=== PATIENT | female | born 2000 | race Caucasian/White ===

== ENCOUNTER 2020-09-29 15:56 | Inpatient (IN) ==
[2020-09-29] MEDS ORDERED: OXYTOCIN/0.9 % SODIUM CHLORIDE 30 UNITS/500 ML BAG IV ONE (16:05)
[2020-09-29] MEDS ORDERED: ONDANSETRON 4 MG TAB.RAPDIS PO PRN (16:05)
[2020-09-29] MEDS ORDERED: RINGER'S SOLUTION,LACTATED 1,000 ML IV ONE (16:05)
[2020-09-29] MEDS ORDERED: RINGER'S SOLUTION,LACTATED 1,000 ML IV PRN (16:29)
[2020-09-29 16:30] LABS: Hematocrit 32.1 % (37.0-47.0); Hemoglobin 10.2 gm/dL (12.5-16.0); Mean Corpuscular Hemoglobin 27.6 pg (27-31); Mean Corpuscular Hgb Conc 31.8 g/dl (32-36); Mean Platelet Volume 12.7 fl (8-12.5); Neutrophil # 6.4 K/mm3 (1.3-6.0); Neutrophil % 78.2 % (42-75.0); Platelet Count 156 K/mm3 (150-450); Red Blood Count 3.69 M/mm3 (4.2-5.4); Red Cell Distribution Width 13.4 % (11.5-14.0); White Blood Count 8.2 K/mm3 (4.0-10.5)
--- NOTE | 2020-09-29 16:37 | HP ---
Chief Complaint - Chief Complaint Date of Service: 09/29/20 Time of Service: 16:31 History of Present Illness: 20 yo at 39w2d admitted for induction of labor due to elevated BPs in office with favorable cervix at >39wks. This complicated by anemia anxiety/depression (inactive), and now elevated BP. Rh positive Rubella immune GBS negative Medical History (Last Reviewed 09/29/20 @ 16:34 by Brandon Andujar DO) Anemia affecting (Acute) Onset Date: 07/15/20 Ovarian cyst (Acute) Right ovary with 3 simple cysts measuring 3.54, 3.15, and 2.76cm. (02/19/20) Anemia Anxiety Depression Seasonal affective disorder Heart murmur of Surgical History: Surgical History (Last Reviewed 09/29/20 @ 16:34 by Brandon Andujar DO) H/O wisdom tooth extraction 1&17 Family History: Family History (Last Reviewed 09/29/20 @ 16:34 by Brandon Andujar DO) Mother Endometriosis Uterine prolapse Brother Fatty (change of) liver, not elsewhere classified Grandmother Cleft palate Social History: (Last Reviewed 09/29/20 @ 16:34 by Brandon Andujar DO) Social History: adopted: No Marital status: Single household members: significant other number of children: 1 current occupational status: employed current occupation: [employer] current occupational exposures/hazards: Yes Highest level of school completed/degree received: high school graduate Sexually Active: Yes Service: No Tobacco: Smoking Status: Former smoker how long ago did patient quit smoking: quit vaping with + UPT Alcohol: alcohol intake: current alcohol intake frequency: a few times a month details: none since +UPT Substance Use: substance use type: does not use Dietary Habits: caffeine: Yes caffeine comment: 3x/week Type: coffee daily servings of milk/calcium: 0-1 Exercise: frequency: does not exercise Review Of Systems (GEN) - Review of Systems Generalized/Overall Review: Present: No Symptoms Reported EENTM: Present: No Symptoms Reported Respiratory: Present: No Symptoms Reported Cardiac: Present: No Symptoms Reported Abdominal: Present: No Symptoms Reported Genitourinary: Present: No Symptoms Reported Musculoskeletal: Present: No Symptoms Reported Neurological: Present: No Symptoms Reported Skin: Present: No Symptoms Reported Endocrine: Present: No Symptoms Reported Allergies/Adverse Reactions: Allergies Allergy/AdvReac Type Severity Reaction Status Date / Time No Known Allergies Allergy Verified 09/29/20 16:04 Home Medications: HOME MEDICATIONS prenat.vits,stephanie,[id number] 1 tab PO DAILY 02/19/20 [Last Taken Unknown] ferrous sulfate 325 mg (65 mg iron) tablet 325 mg PO DAILY #30 tab 07/15/20 [Last Taken Unknown] Exam - Exam Vital Signs: Vital Signs - Last Taken Temp 36.1 C 09/29/20 16:29 Pulse 78 09/29/20 16:29 Resp 18 09/29/20 16:29 BP 136/88 09/29/20 16:29 Pulse Ox 99 09/29/20 16:29 Constitutional: Present: Alert, Oriented x3, Cooperative, No distress ENT Exam: Present: hearing grossly normal Neck: Present: non-tender, trachea midline Breasts: Present: Exam deferred Respiratory: Present: lungs clear, no respiratory distress Cardiovascular/Chest: Present: normal peripheral pulses, regular rate, rhythm Abdomen: Present: soft, nontender, no rebound tenderness, other - gravid /Rectal: Present: Other - Cervix 3/60/-3 Extremity: Present: no pedal edema, no calf tenderness Skin Exam: Present: normal color, warm/dry, no cyanosis Lymphatic: Present: no adenopathy Neurologic: Present: alert, normal mood/affect, oriented x 3, other - DTR 1/4, no clonus Appearance: Present: appropriate appearance, appropriate insight Eye contact: Present: cooperative, good eye contact Thoughts: Present: normal thought pattern, normal mood /affect Assessment/Plan - Assessment/Plan (1) Encounter for induction of labor Assessment: Admit for pitocin induction of labor. Epidural PRN. Preeclamptic labs and serial BPs. If WNL, then routine labor management, otherwise, seizure precautions and magnesium sulfate for severe s/s. Problem: Acute (2) Elevated blood pressure complicating in third trimester, antepartum Problem: Acute (3) Anemia affecting Problem: Acute Qualifiers: Trimester: third trimester Qualified Code(s): O99.013 - Anemia complicating , third trimester
[2020-09-29 16:43] LABS: Albumin * 2.7 gm/dl (3.4-5.0); Anion Gap 13.8 mmol/L (6.8-13.8); BUN/Creatinine Ratio 16.1 (9.0-21.6); Bilirubin, Total 0.2 mg/dL (0.0-1.1); Ca. Corrected For Albumin 9.6 mg/dL (8.4-10.2); Calcium * 8.9 mg/dL (7.9-10.9); Carbon Dioxide 22.2 mmol/L (24-32.6)
[2020-09-29 16:55] LABS: Random Urine Total Protein 19.7 mg/dL (0-12)
[2020-09-29] MEDS ORDERED: CALCIUM CARBONATE 500 MG TAB.CHEW PO PRN (19:35)
[2020-09-29] MEDS ORDERED: BUPIVACAINE HCL/0.9 % NACL/PF 250 ML EP PRN (21:35)
[2020-09-29] MEDS ORDERED: NALOXONE HCL 1 MG/1 ML SYRG IV PRN (21:35)
[2020-09-29] MEDS ORDERED: ONDANSETRON HCL/PF 2 MG/ML VIAL IV PRN (21:35)
[2020-09-29] MEDS ORDERED: BUPIVACAINE HCL/PF 30 ML VIAL EP SCH (21:45)
--- NOTE | 2020-09-29 22:31 | ANES ---
Anesthesia Pre Procedure Eval Vitals/Labs: Last Vital Signs Temp 36.1 C 09/29/20 16:29 Pulse 78 09/29/20 16:29 Resp 18 09/29/20 16:29 BP 136/88 09/29/20 16:29 Pulse Ox 99 09/29/20 16:29 HOME MEDICATIONS prenat.vits,stephanie,[id number] 1 tab PO DAILY 02/19/20 [Last Taken Unknown] ferrous sulfate 325 mg (65 mg iron) tablet 325 mg PO DAILY #30 tab 07/15/20 [Last Taken Unknown] Allergies/Adverse Reactions: Allergies Allergy/AdvReac Type Severity Reaction Status Date / Time No Known Allergies Allergy Verified 09/29/20 16:04 - Planned Procedure Planned Procedure: Labor epidural Medication List Reviewed:: Yes Allergies Verified: Yes Medical History (Last Reviewed 09/29/20 @ 16:34 by Brandon Andujar DO) Anemia affecting (Acute) Onset Date: 07/15/20 Ovarian cyst (Acute) Right ovary with 3 simple cysts measuring 3.54, 3.15, and 2.76cm. (02/19/20) Anemia Anxiety Depression Seasonal affective disorder Heart murmur of Surgical History (Last Reviewed 09/29/20 @ 16:34 by Brandon Andujar DO) H/O wisdom tooth extraction 1&17 Family History (Last Reviewed 09/29/20 @ 16:34 by Brandon Andujar DO) Mother Endometriosis Uterine prolapse Brother Fatty (change of) liver, not elsewhere classified Grandmother Cleft palate - Anesthesia Assessment and Plan ASA Class: PS, II Anesthesia Type Plan: Epidural
--- NOTE | 2020-09-29 22:50 | ANES ---
Anesthesia Procedure Note Procedure Note: ANESTHESIA PROCEDURE NOTE Date of Procedure: 09/29/2020. Time of procedure: 2229. Performed by: Neo Brown CRNA Special Delivery Worker: None. Preprocedure diagnosis: Active labor. Post procedure diagnosis: Same. Procedure: Insertion of labor epidural. Indications: The patient is a 20-year-old female in active labor requesting labor epidural for pain management. Findings: See below. Details of the procedure: The patient was placed in a sitting position. DuraPrep as well as Betadine swabs X3 was applied to the patient's back. Patient was then draped in a sterile fashion. Lidocaine 1% was infiltrated to the skin and subcutaneous tissues at the level of the L3-4 interspace. The epidural space was identified using a 18-gauge Tuohy needle with [id number] technique. Epidural catheter was inserted to a depth of 12 centimeters at skin. Negative test dose was elicited using 3 mL of 1.5% preservative-free lidocaine plus epinephrine 1 200,000. The epidural catheter was then taped and secured in place. A loading dose of 8 mL of 0.25% preservative-free bupivacaine was administered to the epidural catheter after negative aspiration for blood and CSF. EBL: Minimal. Fluids: N/A. Specimen: N/A. Post procedure condition: The patient tolerated the procedure well. No complications were noted. Thank you for this consultation. Neo Brown CRNA
--- NOTE | 2020-09-29 22:50 | ANES ---
Post Anesthesia Assessment - Vital Signs Vitals: Last Vital Signs Temp 36.1 C 09/29/20 16:29 Pulse 78 09/29/20 16:29 Resp 18 09/29/20 16:29 BP 136/88 09/29/20 16:29 Pulse Ox 99 09/29/20 16:29 Airway Patency: Normal - Mental Status Level Of Consciousness: Awake - N/V Assessment Nausea/Vomiting Presence: None Dehydration:: No
--- NOTE | 2020-09-30 05:04 | PN ---
Progess Note - Interim Date: 09/30/20 Time: 05:02 Narrative: 09/30/20 05:02 Patient receiving some relief with epidural. Denies headache, visual changes, or epigastric pain. Vital signs stable, blood pressures elevated in the mild range.. Pitocin at 10 mu/min. FHT: 135 baseline, reassuring contractions q 2 min Cervix: Complete and pushing Impression: Intrauterine at 39 3/7 weeks induction of labor for preeclampsia Plan: Anticipate normal spontaneous vaginal delivery soon.
--- NOTE | 2020-09-30 06:14 | OR ---
Operative Report - Dictated Report Narrative: Spontaneous vaginal delivery of viable female born at 0528 on 09/30/2020 with Apgars 9 and 10, weighing 3385 g in COLIN position with shoulder cord and foot cord x1. Cord clamping delayed approximately 45 seconds Placenta delivered complete, intact, with three vessel cord Estimated blood loss: 100 mL Anesthesia: Epidural Lacerations: None History for MU History for MU Definition: * The number of deliveries resulting in a live the patient experienced prior to current hospitalization * The previous delivery of live twins or any live multiple gestation is considered one live event. *If primagravida or nulliparous is documented select zero for the number of previous live births. Live Events: Live Events: 1
[2020-09-30] MEDS ORDERED: oxyCODONE HCL/ACETAMINOPHEN 1 TAB TABLET PO PRN (06:16)
[2020-09-30] MEDS ORDERED: BISACODYL 10 MG SUPP.RECT RC PRN (06:16)
[2020-09-30] MEDS ORDERED: GLYCERIN/WITCH HAZEL LEAF 40 APPL BOX TP PRN (06:16)
[2020-09-30] MEDS ORDERED: IBUPROFEN 800 MG TABLET PO PRN (06:16)
[2020-09-30] MEDS ORDERED: BENZOCAINE/MENTHOL 81 SPRAY CAN TP PRN (06:16)
[2020-09-30] MEDS ORDERED: OXYTOCIN/0.9 % SODIUM CHLORIDE 30 UNITS/500 ML BAG IV ONE (06:16)
[2020-09-30] MEDS ORDERED: SENNOSIDES 8.6 MG TABLET PO PRN (06:16)
[2020-09-30] MEDS ORDERED: HYDROCORTISONE 30 APPL TUBE TP PRN (06:16)
[2020-09-30] MEDS: IBUPROFEN 800 MG TABLET PO PRN ×2 (07:56→17:07)
[2020-09-30] MEDS ORDERED: ESCITALOPRAM OXALATE 10 MG TAB PO SCH ×2 (09:00→21:00)
[2020-09-30] MEDS: PRENATAL VITS96/IRON FUM/FOLIC 1 TAB TABLET PO SCH (09:45)
[2020-09-30] MEDS: FERROUS SULFATE 325 MG TABLET PO SCH (09:45)
[2020-09-30] MEDS: DOCUSATE SODIUM 100 MG CAPSULE PO SCH ×2 (09:45→20:44)
[2020-09-30] MEDS ORDERED: RHO(D) IMMUNE GLOBULIN 1,500 UNIT SYRINGE IM ONE (14:16)
[2020-10-01] MEDS: IBUPROFEN 800 MG TABLET PO PRN ×2 (02:41→14:08)
[2020-10-01] MEDS: FERROUS SULFATE 325 MG TABLET PO SCH (08:41)
[2020-10-01] MEDS: PRENATAL VITS96/IRON FUM/FOLIC 1 TAB TABLET PO SCH (08:41)
[2020-10-01] MEDS: DOCUSATE SODIUM 100 MG CAPSULE PO SCH (08:41)
--- NOTE | 2020-10-01 10:20 | PN ---
Subjective - Date and Time Seen Date: 10/01/20 Time: 10:17 Objective - Vitals Vitals: Last Vital Signs Temp 36.5 C 10/01/20 07:14 Pulse 69 10/01/20 07:14 Resp 16 10/01/20 07:14 BP 129/76 10/01/20 07:14 Pulse Ox 96 10/01/20 07:14 Patient denies complaints. Bottlefeeding Lochia wnl abdomen - soft, nontender Uterus -firm, at umbilicus - 1 No calf tenderness Impression: day #1 - s/p spontaneous vaginal delivery. Desires early discharge. Plan: Continue routine care. Routine discharge instructions given. Cauti Physician Documentation - Urinary Catheter Management Urethral ([place]) Date of Insertion: 09/29/20 Time of Insertion: 23:30 Assessment/Plan - Problems/Diagnosis (1) Status post normal vaginal delivery Problem: Acute (2) Preeclampsia Problem: Resolved Qualifiers: Trimester: third trimester Qualified Code(s): O14.93 - Unspecified pre- eclampsia, third trimester (3) Encounter for induction of labor Problem: Resolved (4) Elevated blood pressure complicating in third trimester, antepartum Problem: Resolved (5) Anemia affecting Problem: Chronic Qualifiers: Trimester: third trimester Qualified Code(s): O99.013 - Anemia complicating , third trimester
--- NOTE | 2020-10-01 10:24 | DS ---
OB Discharge Summary (1) Status post normal vaginal delivery Status: Acute (2) Preeclampsia Status: Resolved Qualifiers: Trimester: third trimester Qualified Code(s): O14.93 - Unspecified pre- eclampsia, third trimester (3) Encounter for induction of labor Status: Resolved (4) Elevated blood pressure complicating in third trimester, antepartum Status: Resolved (5) Anemia affecting Status: Chronic Qualifiers: Trimester: third trimester Qualified Code(s): O99.013 - Anemia complicating , third trimester Delivery Date: 09/30/20 Delivery Time: 05:28 :: 2 Para:: 2 Gestational weeks:: 39 Gestational days:: 3 Intrapartum Procedures: Spontaneous Vaginal Delivery, Delivered, Anesthesia - Epidural Discharge Diagnosis: Term -Delivered - Discharge Information Date of Discharge: 10/01/20 Hospital Course: 20-year-old 2 now para 2 admitted at 39 weeks 2 days for induction of labor due to elevated blood pressures. She was found to have preeclampsia without severe features. Blood pressures quickly returned to normal after delivery and her course was uncomplicated. Disposition: Home self-care Condition: Good Activity on Discharge:: Activity as tolerated, Pelvic Rest Discharge Diet: General/regular food Additional Patient Instructions (free text): Amanda will follow up with Dr. Andujar on Continue to take vitamins one daily. Rest when your baby rests. Drink plenty of water, eat a lot of fruits and vegetables and lean meat. Lanny will follow up with Alessandra weight was 7# 7.4 oz. today's weight was 7# 5.9 oz. Alessandra blood type is A positive. Alessandra passed her hearing in both ears, her CHD and her Metabolic Screen has been drawn. Always use safe sleeping practices, always place your baby on her back to sleep in her own bed. No co-sleeping, bumper pads, heavy blankets, or stuffed animals in sleeping area. Feed Alessandra every 3-4 hours, burping frequently. Thank you for choosing [facility] for your special event. If you have any concerns or questions please call the [facility] [phone], [facility] [phone] or [facility] [phone]. Complete Home Medications List: Complete Home Medication List: prenat.vits,stephanie,[id number] 1 tab PO DAILY 02/19/20 ferrous sulfate 325 mg (65 mg iron) tablet 325 mg PO DAILY #30 tab 07/15/20 - Plan Discharge to:: Home Follow up in office in:: 1 week - [place] Information Weight (Grams): 3,385 Infant Sex: Female Score 1 min: 9 Score 5 min: 10 Infant Complications: None Other Complications: foot cord, shoulder cord
[2020-10-01 14:12] VITALS: BP 127/73
== END 2020-10-01 15:05 | disposition home or self-care (01) | DRG 807 ==
LOC: OB 15:56
PROVIDERS: ADMIT Obstetrics & Gynecology; ATTEND Obstetrics & Gynecology